=== PATIENT | male | born 1955 ===

== ENCOUNTER 2025-07-13 06:12 | Day surgery (SDC) | payer MEDICARE, OTHER, SELFPAY ==
--- NOTE | 2025-06-24 10:11 | CM ---
CM reviewed medical records.
Demographics: confirmed
Living situation: Lives with
Support Person Post Operatively:
History of
VN: None
SNF: None
Outpatient: Pending surgical clearance, plans to use [facility]
Has patient purchased required equipment: sling
PCP: Dr. Tom
Pharmacy: [facility]
Post Operative Discharge Plan: Home, pending surgical clearance for PT.
[2025-06-28 13:58] VITALS: BMI 39.6
[2025-06-28 14:26] LABS: Hematocrit 43.9 % (39.0-52.0); Hemoglobin 13.9 g/dL (13.0-18.0); Mean Corp Hgb Conc. 31.7 g/dL (33.0-37.0); Mean Corpuscular Volume 94.0 fL (80.0-94.0); Platelet Count 196 10^3/uL (130-400); Red Cell Dist. Width 13.0 % (11.5-14.5)
[2025-06-28 14:55] LABS: ALT (SGPT) 17 U/L (0-50); AST (SGOT) 17 U/L (17-59); Albumin 4.5 g/dl (3.5-5.0); Alkaline Phosphatase 66 U/L (38-126); Blood Urea Nitrogen 52 mg/dl (9-20); Calcium 9.6 mg/dl (8.4-10.2); Carbon Dioxide 27 mmol/L (22-30); Chloride 107 mmol/L (98-107); Estimated Creatinine Clearance 52 ml/min; Glucose 103 mg/dl (70-99); Potassium 5.1 mmol/L (3.5-5.1); Sodium 141 mmol/L (135-145); Total Protein 7.1 g/dl (6.3-8.2); eGFR 46.06
[2025-06-29 08:22] LABS: Glycohemoglobin (HgbA1c) 6.0 % (4.0-5.6)
[2025-07-06 14:17] VITALS: BMI 39.6
[2025-07-13] VITALS (15 sets, daily range): BP systolic 129–175; BP diastolic 85–106; BMI 39.6
[2025-07-13] MEDS: CELEBREX 200 MG PO (09:23)
[2025-07-13] MEDS: TYLENOL 1000 MG PO (09:23)
[2025-07-13] MEDS: NORMOSOL-R/PLASMALYTE-A 1000 IV (09:41)
[2025-07-13] MEDS: ANCEF 5 IV (16:47)
--- NOTE | 2025-07-13 16:56 | PTCARENOTE ---
[address] Dos Santos and Dr Hunter, stable to transfer to [facility]. Will continue IS use, coughing and deep breathing. Patient to be discharged from [facility] with RA saturation 90% or greater.
--- NOTE | 2025-07-13 17:52 | W.DS.TRANS ---
DC Summary - [facility]
-
Discharge Instructions:
Discharge Diagnosis/Procedures L TSA Dr. Fischer [facility]
Diet As tolerated
Activity Other activity
Additional Activity Sling/Pillow to LUE; NWB to LUE. Gentle ROM of
the elbow, wrist and hand ok.
Driving Restrictions No driving
Bathing Restrictions OK to Shower
Instructions:
Stand-Alone Forms: SDS Total Shoulder D/C Inst.
Changes to Home Medications: Yes
Discharge Medications:
DC Medications w/original date entered in [employer]
atorvastatin 20 mg tablet 20 mg PO DAILY 06/25/25
carvedilol 12.5 mg tablet 12.5 mg PO BID 06/25/25
finasteride 5 mg tablet 5 mg PO DAILY 06/25/25
fluticasone propionate 50 mcg/actuation nasal spray,suspension 1 spray intranasal DAILY 06/25/25
gabapentin 300 mg capsule 600 mg PO HS 06/25/25
montelukast 10 mg tablet 10 mg PO DAILY 06/25/25
omeprazole 20 mg capsule,delayed release 20 mg PO HS 06/25/25
ropinirole 5 mg tablet 10 mg PO HS 06/25/25
tadalafil 5 mg tablet 5 mg PO DAILY 06/25/25
mupirocin 2 % topical ointment 1 applic topical BID infection prevention #1 tube 06/27/25
dexamethasone 4 mg tablet 4 mg PO BID inflammation #6 tabs 06/28/25
doxycycline hyclate 100 mg capsule 100 mg PO BID infection prevention #10 caps 06/28/25
ondansetron 4 mg disintegrating tablet 4 mg PO Q6H PRN n/v #20 tabs 06/28/25
oxycodone 5 mg tablet 5 mg PO Q6H PRN 1 tab moderate pain, 2 tabs severe pain #30 tabs 06/28/25
tamsulosin 0.4 mg capsule 0.4 mg PO HS #7 caps 06/29/25
Saccharomyces boulardii 250 mg capsule (Florastor) 250 mg PO BID #1 cap 07/13/25
acetaminophen 325 mg tablet (Tylenol) 650 mg (2 x 325 mg) PO QID #1 tab 07/13/25
aspirin 325 mg tablet 325 mg PO DAILY blood clot prevention #1 tab 07/13/25
docusate sodium 100 mg capsule (Colace) 100 mg PO BID stool softner #1 cap 07/13/25
losartan 50 mg tablet 50 mg PO BID #0 tabs 07/13/25
magnesium hydroxide 400 mg/5 mL oral suspension (Milk of Magnesia) 30 ml PO HS PRN constipation #1 mL 07/13/25
sennosides 8.6 mg tablet (Senokot) 17.2 mg (2 x 8.6 mg) PO BID laxative #2 tabs 07/13/25
vitamin B complex 1 cap PO DAILY 07/13/25
Home Medication Changes
mupirocin 2 % topical ointment 1 applic topical BID infection prevention #1 tube 06/27/25
dexamethasone 4 mg tablet 4 mg PO BID inflammation #6 tabs 06/28/25
doxycycline hyclate 100 mg capsule 100 mg PO BID infection prevention #10 caps 06/28/25
ondansetron 4 mg disintegrating tablet 4 mg PO Q6H PRN n/v #20 tabs 06/28/25
oxycodone 5 mg tablet 5 mg PO Q6H PRN 1 tab moderate pain, 2 tabs severe pain #30 tabs 06/28/25
tamsulosin 0.4 mg capsule 0.4 mg PO HS #7 caps 06/29/25
Saccharomyces boulardii 250 mg capsule (Florastor) 250 mg PO BID #1 cap 07/13/25
acetaminophen 325 mg tablet (Tylenol) 650 mg (2 x 325 mg) PO QID #1 tab 07/13/25
aspirin 325 mg tablet 325 mg PO DAILY blood clot prevention #1 tab 07/13/25
docusate sodium 100 mg capsule (Colace) 100 mg PO BID stool softner #1 cap 07/13/25
losartan 50 mg tablet 50 mg PO BID #0 tabs 07/13/25
magnesium hydroxide 400 mg/5 mL oral suspension (Milk of Magnesia) 30 ml PO HS PRN constipation #1 mL 07/13/25
sennosides 8.6 mg tablet (Senokot) 17.2 mg (2 x 8.6 mg) PO BID laxative #2 tabs 07/13/25
vitamin B complex 1 cap PO DAILY 07/13/25
Pending Results: No
== END 2025-07-13 18:09 | disposition home or self-care (01) ==
LOC: SDS 06:12
PROVIDERS: ATTENDING PHYSICIAN Orthopaedic Surgery Hand Surgery; FAMILY PHYSICIAN Family Medicine
DX: M19.012 Primary osteoarthritis, left shoulder (principal)
CPT/HCPCS: 23472; C1776; 36415; 73020; 80053; 83036; 85027; 87070; 93005; C1713